=== PATIENT | male | born 1995 | race Two or more races ===

== ENCOUNTER 2019-07-17 21:27 | Emergency (ER) | payer MEDICARE, OTHER ==
[~2019-07-17] VITALS: Ht 177.8 cm; Wt 106.6 kg
--- NOTE | 2019-07-17 21:48 | NUR ---
TATUM 39 FROM [facility] [place] FOR C/I ABD PAIN X 1 DAY. - N/V/D. LAST BM TWO DAYS AGO. PT DENIED SI AND REPORTED NOT WILLING TO GO BACK TO THE [facility] ANY MORE. PT WAS PLACED ON A MONITOR . VSS. WILL CONT TO MONITOR ,
--- NOTE | 2019-07-17 21:59 | NUR ---
BLOOD DRAWN AND SENT TO LAB.
[2019-07-17 22:00] LABS: BASOPHILS # (AUTO) 0.1 /CMM (0.0-0.2); BASOPHILS % (AUTO) 0.8 % (0.0-2.0); EOSINOPHILS % (AUTO) 1.9 % (0.0-6.0); HEMATOCRIT 46 % (39-51); HEMOGLOBIN 15.5 g/dL (13.5-17.5); LYMPHOCYTES # (AUTO) 1.3 /CMM (0.8-4.8); LYMPHOCYTES % (AUTO) 15.1 % (20.0-44.0); MEAN CORPUSCULAR HGB CONC 34 g/dl (31.0-36.0); MEAN CORPUSCULAR VOLUME 88 fL (80-96); MONOCYTES # (AUTO) 0.8 /CMM (0.1-1.30); MONOCYTES % (AUTO) 9.5 % (2.0-12.0); NEUTROPHILS # (AUTO) 6.3 /CMM (1.8-8.9); NEUTROPHILS % (AUTO) 72.7 % (43.0-81.0); PLATELET COUNT (AUTO) 218 /CMM (150-450); RED BLOOD CELL COUNT(AUTO) 5.25 MIL/uL (4.5-6.0); WHITE BLOOD COUNT (AUTO) 8.7 K/uL (4.3-11.0)
[2019-07-17 22:05] LABS: CALCIUM, SERUM 9.1 mg/dL (8.5-10.1); CREATININE 0.9 mg/dL (0.6-1.3); POTASSIUM 3.6 mmol/L (3.5-5.1)
[2019-07-17 22:11] LABS: BILIRUBIN,DIRECT 0.1 mg/dL (0.0-0.2); BILIRUBIN,TOTAL 0.4 mg/dL (0.2-1.0); TOTAL PROTEIN, SERUM 7.4 g/dL (6.4-8.2)
--- NOTE | 2019-07-17 22:20 | NUR ---
URINE COLLECTED AND SENT TO LAB.
--- NOTE | 2019-07-17 22:21 | NUR ---
PATIENT C/O PAIN UPON URINATION.
[2019-07-17 22:26] LABS: APPEARANCE,URINE Slightly Cloudy (CLEAR); BILIRUBIN,URINE Negative (NEGATIVE); BLOOD, URINE Negative Ery/uL (NEGATIVE); COLOR,URINE Yellow (YELLOW); KETONES,URINE Negative (NEGATIVE); LEUKOCYTE ESTERASE ,URINE Negative (NEGATIVE); NITRITE, URINE Negative (NEGATIVE); PROTEIN,URINE Negative (NEGATIVE); UGLUCOSE Negative (NEGATIVE); UROBILINOGEN,URINE 0.2 EU/dL (0.2)
--- NOTE | 2019-07-18 01:11 | NUR ---
IV removed. Catheter intact and site benign. Pressure and 4x4 applied to site. No bleeding noted.
--- NOTE | 2019-07-18 01:12 | NUR ---
PATIENT AGREES TO SPEAK WITH HOT BALLER IN THE MORNING.
--- NOTE | 2019-07-18 01:12 | NUR ---
Patient discharged to home in stable condition. Written and verbal after care instructions given. Patient verbalizes understanding of instruction.
[2019-07-18 01:13] VITALS: BP 129/77
== END 2019-07-18 01:14 | disposition home or self-care (01) ==
LOC: ER 21:30
DX: R30.0 Dysuria (principal); I10 Essential (primary) hypertension; J45.909 Unspecified asthma, uncomplicated
CPT/HCPCS: 36415; 80048-TC; 80076-TC; 81000-TC; 83690-TC; 85025-TC

== ENCOUNTER 2019-07-18 02:18 | Emergency (ER) | payer MEDICARE, OTHER ==
[~2019-07-18] VITALS: Ht 170.2 cm; Wt 106.6 kg
--- NOTE | 2019-07-18 04:06 | NUR ---
PATIENT CAME TO ER BED 11 C/O HEARING VOICES. PATIENT STATES THAT HE HEARS HIS MOTHER'S VOICE TELLING HIM TO HURT SOMEONE. PATIENT DENIES SUICIDAL IDEATION. PATIENT STATES THAT HE DOESN'T WANT TO GO TO [facility] BECAUSE THE DOCTOR AT [facility] IS TOO NEW. AAOX4. NO SOB. BREATHING EVENLY AND UNLABORED ON ROOM AIR. CONNECTED TO MONITOR.
--- NOTE | 2019-07-18 04:07 | NUR ---
URINE COLLECTED AND SENT TO LAB FOR TESTING.
[2019-07-18 05:04] LABS: ALCOHOL, BLOOD < 3 mg/dL (0-0)
[2019-07-18 05:06] LABS: ACETAMINOPHEN 0 ug/ml (10-30); SALICYLATE < 0.2 mg/dL (2.8-20.0)
--- NOTE | 2019-07-18 05:27 | NUR ---
CALLED [facility] FOR PSYCH EVAL.
--- NOTE | 2019-07-18 06:30 | NUR ---
SEEN BY ART MANAGER CONSUMER
--- NOTE | 2019-07-18 07:20 | NUR ---
REPORT GIVEN TO DONA CEE FOR [facility]YS[facility].
--- NOTE | 2019-07-18 08:33 | NUR ---
SEEN BY IRENE PALENCIA, PATIENT WOULD LIKE TO TRY [facility]
--- NOTE | 2019-07-18 08:46 | NUR ---
FILLER PICKER met with the pt bedside. Pt was seen by computer numeric control setter Art who then referred pt to IRENE. Pt is alert and oriented x 4. Pt identifies as transgender. Pt reports he was at [facility] and wants to go back there. FILLER PICKER initiated [facility] voluntary hospitalization by calling Frank at [facility], who stated, they will have a bed for the pt and to fax clinicals. Clinicals faxed to [facility] intake.
--- NOTE | 2019-07-18 10:15 | NUR ---
FITTER PLACER contacted [facility] intake to f/u regarding accepting pt to [facility]. FITTER PLACER spoke with Irene, who informed SW that referral packet has been forwarded to [facility] and is awaiting a response. Irene to f/u with SW in 25 minutes.
[2019-07-18 10:30] LABS: HEMOGLOBIN 16.1 g/dL (13.5-17.5); MEAN CORPUSCULAR HGB CONC 33 g/dl (31.0-36.0)
[2019-07-18 10:35] LABS: BASOPHILS # (AUTO) 0.1 /CMM (0.0-0.2); BASOPHILS % (AUTO) 0.7 % (0.0-2.0); EOSINOPHILS % (AUTO) 0.8 % (0.0-6.0); HEMATOCRIT 49 % (39-51); LYMPHOCYTES # (AUTO) 1.5 /CMM (0.8-4.8); LYMPHOCYTES % (AUTO) 18.1 % (20.0-44.0); MEAN CORPUSCULAR VOLUME 88 fL (80-96); MONOCYTES # (AUTO) 0.8 /CMM (0.1-1.30); NEUTROPHILS % (AUTO) 71.4 % (43.0-81.0); PLATELET COUNT (AUTO) 220 /CMM (150-450); RED BLOOD CELL COUNT(AUTO) 5.52 MIL/uL (4.5-6.0); WHITE BLOOD COUNT (AUTO) 8.4 K/uL (4.3-11.0)
[2019-07-18 10:37] LABS: CALCIUM, SERUM 9.4 mg/dL (8.5-10.1); CARBON DIOXIDE 28 mmol/L (21-32); CHLORIDE 104 mmol/L (98-107); CREATININE 0.7 mg/dL (0.6-1.3); GLUCOSE 96 mg/dL (74-106); POTASSIUM 4.1 mmol/L (3.5-5.1); SODIUM SERUM 141 mmol/L (136-145); UREA NITROGEN, BLOOD 10 mg/dL (7-18)
[2019-07-18 10:51] LABS: ALANINE AMINOTRANSFERASE 42 U/L (12-78); ALBUMIN 4.2 g/dL (3.4-5.0); ALCOHOL, BLOOD < 3 mg/dL (0-0); ALKALINE PHOSPHATASE 78 U/L (46-116); ASPARTATE AMINOTRANSFERASE 33 U/L (15-37); BILIRUBIN,DIRECT 0.2 mg/dL (0.0-0.2); BILIRUBIN,TOTAL 0.7 mg/dL (0.2-1.0); TOTAL PROTEIN, SERUM 7.8 g/dL (6.4-8.2)
--- NOTE | 2019-07-18 11:31 | NUR ---
FAXED CLINICALS TO [facility] INTAKE DEPT C/O [facility] ([phone])
--- NOTE | 2019-07-18 11:46 | NUR ---
IRENE received a call back from [facility] intake. Pt has been accepted to [facility]. Accepting Dr. Botello/Dr. Matute. Report must be called to COLEMAN Maurice at [facility] Addendum: 07/18/19 at 3478 by SLIME BONILLA STEPHEN Gale in ED regarding pt being accepted to [facility].
--- NOTE | 2019-07-18 11:55 | NUR ---
CALLED [facility] FOR TRANSPORT TO [facility]. ETA 1230.
--- NOTE | 2019-07-18 12:07 | NUR ---
REPORT GIVEN TO DEAN CEE UNIT 2 OF [facility].
[2019-07-18 12:59] VITALS: BP 137/80
--- NOTE | 2019-07-18 13:01 | NUR ---
Patient picked up by [facility] Unit [facility] in stable condition. Clinicals given to EMT to be given to [facility].
== END 2019-07-18 13:03 ==
LOC: ER 02:19
DX: R45.850 Homicidal ideations (principal); I10 Essential (primary) hypertension; J45.909 Unspecified asthma, uncomplicated
CPT/HCPCS: 36415; 80048; 80076; 80305; 80307 ×2; 80329; 85025; 99285; G0480

== ENCOUNTER 2019-07-18 17:59 | Emergency (ER) | payer MEDICARE, OTHER ==
[~2019-07-18] VITALS: Ht 170.2 cm; Wt 106.6 kg
--- NOTE | 2019-07-18 18:05 | NUR ---
[id number] FROM [facility]SIDE URGENT CARE C/O SI. "I WANT TO HANG MYSELF." SEEN EARLIER, [facility]. PT STS "THEY DONT HAVE A BED FOR ME." TO ER BED 13, HOOKED TO MONITOR, SECURITY AT BEDSIDE FOR WANDING. CHANGEDT [facility]I HOSP GOWN, WARM BLANKET PROVIDED, AWAITING MD LAKHANI.
--- NOTE | 2019-07-18 18:51 | NUR ---
SUICIDE PRECAUTIONS APPLIED. 1:1 SITTER AT BEDSIDE
[2019-07-18 19:04] LABS: BASOPHILS # (AUTO) 0.1 /CMM (0.0-0.2); BASOPHILS % (AUTO) 0.6 % (0.0-2.0); EOSINOPHILS % (AUTO) 0.4 % (0.0-6.0); HEMATOCRIT 51 % (39-51); HEMOGLOBIN 16.3 g/dL (13.5-17.5); LYMPHOCYTES # (AUTO) 1.2 /CMM (0.8-4.8); LYMPHOCYTES % (AUTO) 10.5 % (20.0-44.0); MEAN CORPUSCULAR HGB CONC 32 g/dl (31.0-36.0); MEAN CORPUSCULAR VOLUME 89 fL (80-96); MONOCYTES % (AUTO) 8.3 % (2.0-12.0); NEUTROPHILS # (AUTO) 9.3 /CMM (1.8-8.9); NEUTROPHILS % (AUTO) 80.2 % (43.0-81.0); PLATELET COUNT (AUTO) 248 /CMM (150-450); RED BLOOD CELL COUNT(AUTO) 5.71 MIL/uL (4.5-6.0); WHITE BLOOD COUNT (AUTO) 11.5 K/uL (4.3-11.0)
[2019-07-18 19:10] LABS: CALCIUM, SERUM 9.5 mg/dL (8.5-10.1); CARBON DIOXIDE 26 mmol/L (21-32); CHLORIDE 105 mmol/L (98-107); CREATININE 0.9 mg/dL (0.6-1.3); GLUCOSE 94 mg/dL (74-106); POTASSIUM 3.8 mmol/L (3.5-5.1); SODIUM SERUM 143 mmol/L (136-145); UREA NITROGEN, BLOOD 12 mg/dL (7-18)
[2019-07-18 19:16] LABS: ALANINE AMINOTRANSFERASE 45 U/L (12-78); ALBUMIN 4.4 g/dL (3.4-5.0); ALCOHOL, BLOOD < 3 mg/dL (0-0); ALKALINE PHOSPHATASE 81 U/L (46-116); ASPARTATE AMINOTRANSFERASE 36 U/L (15-37); BILIRUBIN,DIRECT 0.1 mg/dL (0.0-0.2); BILIRUBIN,TOTAL 0.5 mg/dL (0.2-1.0); TOTAL PROTEIN, SERUM 8.1 g/dL (6.4-8.2)
--- NOTE | 2019-07-18 19:16 | NUR ---
Pt resting comfortably. VSS.
[2019-07-18 20:43] LABS: APPEARANCE,URINE Turbid (CLEAR); BILIRUBIN,URINE Negative (NEGATIVE); BLOOD, URINE Negative Ery/uL (NEGATIVE); COLOR,URINE Yellow (YELLOW); KETONES,URINE Negative (NEGATIVE); LEUKOCYTE ESTERASE ,URINE Negative (NEGATIVE); NITRITE, URINE Negative (NEGATIVE); PROTEIN,URINE Negative (NEGATIVE); UGLUCOSE Negative (NEGATIVE); UROBILINOGEN,URINE 0.2 EU/dL (0.2)
--- NOTE | 2019-07-18 20:57 | NUR ---
PT PROVIDED URINE SAMPLE. GIVEN FOOD. VSS.
--- NOTE | 2019-07-19 00:02 | NUR ---
Patient is resting comfortably in bed with eyes closed. Easily aroused. VSS
--- NOTE | 2019-07-19 04:48 | NUR ---
Patient is resting comfortably in bed with eyes closed. Easily aroused. VSS.
--- NOTE | 2019-07-19 07:07 | NUR ---
PT ASLEEP. VSS.
--- NOTE | 2019-07-19 07:44 | NUR ---
PATIENT IN BED ASLEEP, EASILY AROUSABLE BY VOICE. HOOKED TO MONITOR, KEPT SAFE, WARM AND COMFORTABLE.
--- NOTE | 2019-07-19 08:15 | NUR ---
TREE AND SHRUB TECHNICIAN contacted Frank at [facility] to inquire pt stating they were no beds at [facility] when he was transferred and accepted there yesterday from [facility]. Frank informed SW to fax clinicals and he will follow up with SW. Clinicals faxed to [facility] intake.
--- NOTE | 2019-07-19 08:15 | NUR ---
PROVIDED W BREAKFAST TRAY, TOLERATED FOOD WELL.
--- NOTE | 2019-07-19 09:30 | NUR ---
Accepted at [facility] under Dr Matute/Dominic. Call [place] at [phone] for report.
--- NOTE | 2019-07-19 09:32 | NUR ---
Received call from [facility] intake. pt is accepted at [facility] under Dr. Botello and Dr. Matute. Report needs to be called to . BANKRUPTCY MANAGER updated RN Juvenal in ED with aforementioned information.
--- NOTE | 2019-07-19 12:29 | NUR ---
PATIENT VERBALIZED THAT HE [facility] NOT [facility] MADE IRENE PALENCIA AWARE.
--- NOTE | 2019-07-19 12:31 | NUR ---
CALLED TRANSPORT [facility] [phone] ETA 1186. CALLED [facility] ETA 1300 TRIP NUMBER [id number] PER DIRK.
--- NOTE | 2019-07-19 15:02 | NUR ---
hold at 1430
--- NOTE | 2019-07-19 15:02 | NUR ---
Pt was evaluated by crisis team and placed on a 5150 hold. BLOOD BANK ORDER CONTROL CLERK gave clinical referral packet to Osbaldo, distance learning program coordinator to fax packet to [facility] and Zain Damon. BLOOD BANK ORDER CONTROL CLERK updated CRN Gener in ED.
--- NOTE | 2019-07-19 15:43 | NUR ---
Per Darlene in intake at [facility], clinicals were faxed to [facility] and [facility].
--- NOTE | 2019-07-19 21:35 | NUR ---
PT RESTING COMFORTABLY. VSS.
--- NOTE | 2019-07-20 00:20 | NUR ---
PT RESTING COMFORTABLY. VSS.
--- NOTE | 2019-07-20 01:09 | NUR ---
PT SAYRA RANDALL.
--- NOTE | 2019-07-20 02:17 | NUR ---
PT AMBULATED TO RESTROOM.
--- NOTE | 2019-07-20 03:32 | NUR ---
Patient is resting comfortably in bed with eyes closed. Easily aroused. VSS
--- NOTE | 2019-07-20 08:06 | NUR ---
SW contacted [facility] for a f/u regarding referral that was sent to them yesterday. Per Art at [facility], pt has been referred to several hospitals and is awaiting a bed at this time. Art requested for CONSUMER ATTORNEY to follow up around 1PM.
--- NOTE | 2019-07-20 09:02 | NUR ---
breakfast tray provided. patient tolerating food well.
--- NOTE | 2019-07-20 09:36 | NUR ---
IRENE Sharif and Admin Leydi at bedside
--- NOTE | 2019-07-20 10:57 | NUR ---
Patient stated he's not suicidal. Patient given written and verbal discharge instructions. Patient verbalizes understanding of instructions. Patient is ambulatory with steady gait. Ref[place] [facility] [place] [facility]. Patient given list of available shelters in surrounding area. discharged with proper clothing. Name band removed, All belongings given to patient. Assisted to waiting room to wait for a cab.
[2019-07-20 11:00] VITALS: BP 122/69
== END 2019-07-20 11:00 | disposition home or self-care (01) ==
LOC: ER 17:59
DX: R45.851 Suicidal ideations (principal); F20.9 Schizophrenia, unspecified; I10 Essential (primary) hypertension; J45.909 Unspecified asthma, uncomplicated; F32.9 Major depressive disorder, single episode, unspecified; Z04.6 Encounter for general psychiatric examination, requested by authority
CPT/HCPCS: 36415; 80048; 80076; 80305; 80307; 80329; 81001; 85025; 99285; G0480; 81000-TC

== ENCOUNTER 2021-08-22 21:31 | Emergency (ER) | payer MEDICARE, OTHER ==
[~2021-08-22] VITALS: Ht 170.2 cm; Wt 81.6 kg
[2021-08-23 00:02] LABS: BASOPHILS # (AUTO) 0.1 K/uL (0.0-0.2); BASOPHILS % (AUTO) 1.3 % (0.0-2.0); EOSINOPHILS % (AUTO) 1.3 % (0.0-6.0); HEMATOCRIT 45 % (39-51); HEMOGLOBIN 15.1 g/dL (13.5-17.5); LYMPHOCYTES # (AUTO) 2.5 K/uL (0.8-4.8); LYMPHOCYTES % (AUTO) 30.5 % (20.0-44.0); MEAN CORPUSCULAR HGB CONC 34 g/dl (31.0-36.0); MEAN CORPUSCULAR VOLUME 88 fL (80-96); MONOCYTES # (AUTO) 0.7 K/uL (0.1-1.30); MONOCYTES % (AUTO) 8.3 % (2.0-12.0); NEUTROPHILS # (AUTO) 4.7 K/uL (1.8-8.9); NEUTROPHILS % (AUTO) 58.6 % (43.0-81.0); PLATELET COUNT (AUTO) 204 K/uL (150-450); RED BLOOD CELL COUNT(AUTO) 5.13 MIL/uL (4.5-6.0)
[2021-08-23 00:15] LABS: ALANINE AMINOTRANSFERASE 42 U/L (12-78); ALBUMIN 3.7 g/dL (3.4-5.0); ALCOHOL, BLOOD < 3 mg/dL (0-0); ALKALINE PHOSPHATASE 82 U/L (46-116); ASPARTATE AMINOTRANSFERASE 21 U/L (15-37); BILIRUBIN,DIRECT 0.1 mg/dL (0.0-0.2); BILIRUBIN,TOTAL 0.2 mg/dL (0.2-1.0); CALCIUM, SERUM 8.7 mg/dL (8.5-10.1); CARBON DIOXIDE 29 mmol/L (21-32); CHLORIDE 103 mmol/L (98-107); CREATININE 0.8 mg/dL (0.6-1.3); GLUCOSE 96 mg/dL (74-106); POTASSIUM 3.6 mmol/L (3.5-5.1); SODIUM SERUM 140 mmol/L (136-145); TOTAL PROTEIN, SERUM 6.9 g/dL (6.4-8.2); UREA NITROGEN, BLOOD 14 mg/dL (7-18)
[2021-08-23 00:17] LABS: ACETAMINOPHEN 0 ug/ml (10-30)
[2021-08-23 01:25] LABS: BILIRUBIN,URINE NEGATIVE (NEGATIVE); COLOR,URINE YELLOW (YELLOW); LEUKOCYTE ESTERASE ,URINE NEGATIVE (NEGATIVE); NITRITE, URINE NEGATIVE (NEGATIVE); PROTEIN,URINE NEGATIVE (NEGATIVE); UGLUCOSE NEGATIVE (NEGATIVE); UROBILINOGEN,URINE 0.2 EU/dL (0.2)
[2021-08-23] MEDS ORDERED: LORAZEPAM 1 MG TABLET ONE (04:42)
[2021-08-23] MEDS ORDERED: LORAZEPAM 1 MG TABLET PO ONE (05:00)
[2021-08-23 06:32] LABS: BACTERIA,URINE None seen /HPF (None Seen); RBC,URINE NONE SEEN /HPF (0-2); SQUAMOUS EPITHELIAL CELL,UR None Seen /HPF (None Seen); WBC,URINE 81-100 /HPF (0-3)
[2021-08-23] MEDS ORDERED: PANTOPRAZOLE 40 MG TABLET.DR PO ONE ×2 (21:30→22:08)
[2021-08-23] MEDS ORDERED: risperiDONE 0.25 MG TABLET PO ONE (21:30)
[2021-08-23] MEDS ORDERED: GABAPENTIN 100 MG CAPSULE PO ONE (21:30)
[2021-08-23] MEDS: ESTRADIOL 1 MG TABLET PO SCH (21:30)
[2021-08-23] MEDS ORDERED: DIVALPROEX SODIUM 500 MG TABLET.DR PO ONE ×2 (21:30→22:08)
[2021-08-23] MEDS ORDERED: chlorproMAZINE HCL 25 MG TABLET PO ONE (21:30)
[2021-08-23] MEDS: MONTELUKAST SODIUM (10MG) 10 MG TABLET PO SCH ×2 (22:00→22:14)
[2021-08-23] MEDS ORDERED: GABAPENTIN 100 MG CAPSULE ONE (22:08)
[2021-08-23] MEDS ORDERED: chlorproMAZINE HCL 25 MG TABLET ONE (22:08)
[2021-08-23] MEDS ORDERED: risperiDONE 1 MG TABLET ONE (22:08)
[2021-08-23] MEDS ORDERED: LISINOPRIL (20MG) 20 MG TABLET ONE (22:26)
[2021-08-24] MEDS ORDERED: PAROXETINE HCL 10 MG TABLET PO SCH (09:00)
[2021-08-24] MEDS ORDERED: LISINOPRIL (10MG) 10 MG TABLET PO SCH (09:00)
[2021-08-24] MEDS: ESTRADIOL 1 MG TABLET PO SCH (09:11)
[2021-08-24 13:29] VITALS: BP 135/64
== END 2021-08-24 13:29 | disposition home or self-care (01) ==
LOC: ER 21:38
DX: F39 Unspecified mood [affective] disorder (principal); R45.851 Suicidal ideations; M79.7 Fibromyalgia; Z59.01 Sheltered homelessness; F25.9 Schizoaffective disorder, unspecified; F41.9 Anxiety disorder, unspecified; R82.81 Pyuria; Z20.822 Contact with and (suspected) exposure to COVID-19
CPT/HCPCS: 36415; 80048; 80076; 80143; 80307; 80320; 81001; 85025; 87086; 87426; 99285; Q0161; C9803; G0480

== ENCOUNTER 2021-11-28 18:08 | Emergency (ER) | payer MEDICARE, OTHER ==
[~2021-11-28] VITALS: Ht 170.2 cm; Wt 108.9 kg
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
--- NOTE | 2021-11-28 18:14 | NUR ---
dr marie at bedside for eval.
[2021-11-28 18:59] LABS: BILIRUBIN,URINE NEGATIVE (NEGATIVE); COLOR,URINE YELLOW (YELLOW); LEUKOCYTE ESTERASE ,URINE NEGATIVE (NEGATIVE); NITRITE, URINE NEGATIVE (NEGATIVE); PH,URINE 6.5 (5.0-8.0); PROTEIN,URINE NEGATIVE (NEGATIVE); UGLUCOSE NEGATIVE (NEGATIVE)
[2021-11-28 19:05] LABS: CALCIUM, SERUM 8.9 mg/dL (8.5-10.1); CARBON DIOXIDE 27 mmol/L (21-32); CHLORIDE 106 mmol/L (98-107); CREATININE 0.8 mg/dL (0.6-1.3); GLUCOSE 102 mg/dL (74-106); POTASSIUM 3.7 mmol/L (3.5-5.1); SODIUM SERUM 141 mmol/L (136-145); UREA NITROGEN, BLOOD 12 mg/dL (7-18)
[2021-11-28] MEDS ORDERED: LORAZEPAM INJ 2 MG/ML VIAL ONE (19:09)
[2021-11-28] MEDS ORDERED: diphenhydrAMINE HCL 50 MG/ML VIAL ONE ×2 (19:09→20:49)
[2021-11-28] MEDS ORDERED: HALOPERIDOL LACTATE INJ 5 MG/ML VIAL ONE ×2 (19:09→20:48)
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
[2021-11-28 19:17] LABS: ALANINE AMINOTRANSFERASE 20 U/L (12-78); ALKALINE PHOSPHATASE 61 U/L (46-116); ASPARTATE AMINOTRANSFERASE 18 U/L (15-37); BILIRUBIN,DIRECT 0.1 mg/dL (0.0-0.2); BILIRUBIN,TOTAL 0.3 mg/dL (0.2-1.0); TOTAL PROTEIN, SERUM 7.7 g/dL (6.4-8.2)
[2021-11-28 19:18] LABS: ACETAMINOPHEN 0 ug/ml (10-30); ALCOHOL, BLOOD < 3 mg/dL (0-0)
[2021-11-28] MEDS ORDERED: diphenhydrAMINE HCL 50 MG/ML VIAL IM ONE ×2 (19:30→21:00)
[2021-11-28] MEDS ORDERED: HALOPERIDOL LACTATE INJ 5 MG/ML VIAL IM ONE ×2 (19:30→21:00)
[2021-11-28] MEDS ORDERED: LORAZEPAM INJ 2 MG/ML VIAL IM ONE (19:30)
[2021-11-28 19:41] LABS: BACTERIA,URINE None seen /HPF (None Seen); MUCUS,URINE Many /LPF (None Seen); RBC,URINE 0-2 /HPF (0-2); SQUAMOUS EPITHELIAL CELL,UR 0-2 /HPF (None Seen); WBC,URINE 0-2 /HPF (0-3)
[2021-11-28 19:51] LABS: BASOPHILS # (AUTO) 0.1 K/uL (0.0-0.2); BASOPHILS % (AUTO) 0.8 % (0.0-2.0); EOSINOPHILS % (AUTO) 0.7 % (0.0-6.0); HEMATOCRIT 43 % (39-51); HEMOGLOBIN 14.8 g/dL (13.5-17.5); LYMPHOCYTES # (AUTO) 1.6 K/uL (0.8-4.8); LYMPHOCYTES % (AUTO) 22.7 % (20.0-44.0); MEAN CORPUSCULAR HGB CONC 34 g/dl (31.0-36.0); MEAN CORPUSCULAR VOLUME 89 fL (80-96); MONOCYTES # (AUTO) 0.7 K/uL (0.1-1.30); MONOCYTES % (AUTO) 9.7 % (2.0-12.0); NEUTROPHILS # (AUTO) 4.6 K/uL (1.8-8.9); NEUTROPHILS % (AUTO) 66.1 % (43.0-81.0); PLATELET COUNT (AUTO) 231 K/uL (150-450); RED BLOOD CELL COUNT(AUTO) 4.84 MIL/uL (4.5-6.0)
[2021-11-28] MEDS ORDERED: diphenhydrAMINE HCL ELIX 25 MG/10 ML UDC ONE (20:48)
[2021-11-29] MEDS ORDERED: OLANZAPINE 10 MG VIAL IM ONE ×4 (03:14→18:03)
--- NOTE | 2021-11-29 08:00 | NUR ---
BREAKFAST TRAY PROVIDED, TOLERATED WELL
--- NOTE | 2021-11-29 08:19 | NUR ---
PER [facility], THEY CAN'T TAKE THE PATIENT
--- NOTE | 2021-11-29 08:30 | NUR ---
SPOKE WITH PSYCH CLINICIAN RADHA CRANDALL AND ASKED HIM TO FIND PLACEMENT FOR THE PATIENT. MR CRANDALL WILL BE ON DUTY UNTIL 1700 TODAY. MR CRANDALL TEL [phone]
--- NOTE | 2021-11-29 08:34 | NUR ---
PER RADHA CRANDALL (PSYCH CLINICIAN) THE CASE MUST BE FOLLOWED UP BY PSYCH CLINICIAN KATE.
--- NOTE | 2021-11-29 16:33 | NUR ---
SPOKE WITH KATE (PSYCH CLINICIAN) WHO STATED SHE WILL CONTACT LAB TECHNICIAN PSYCH MD TO SEE THE PATIENT.
[2021-11-29] MEDS ORDERED: diphenhydrAMINE HCL 50 MG/ML VIAL IM ONE (17:00)
[2021-11-29] MEDS ORDERED: diphenhydrAMINE HCL 50 MG/ML VIAL ONE (18:04)
--- NOTE | 2021-11-30 10:09 | NUR ---
Psych Placement: IRENE followed up with psych hospitals for update on possible admission: [facility] TEL: [phone] Intake no bed availability [facility] fax:[phone] tel:[phone] no adult beds at this time [facility] FAX: [phone] TEL:[phone] EXT. [phone] declined as they do not have a private room for pt. 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 [facility] FAX [phone] TEL:[phone] Per intake theya reviewing clinicals. IRENE faxed clinicals to the following hospitals: [facility] TEL: [phone] fax: [phone] [facility] fax:[phone]; [phone] tel:[phone] [facility] TEL: [phone] FAX: [phone] [facility] FAX: [phone] TEL:[phone] ; 3 [facility] FAX: [phone] TEL: [phone]
[2021-11-30] MEDS ORDERED: chlorproMAZINE HCL 25 MG TABLET PO ONE (10:30)
[2021-11-30] MEDS ORDERED: chlorproMAZINE HCL 25 MG TABLET ONE (10:38)
--- NOTE | 2021-11-30 14:00 | NUR ---
SW Consult: SW met with pt for evaluation (living condition). Pt appeared alert and oriented x2. Pt appeared labile and angry. He stated that he was at [facility]. He stated that he has no supportive contact. Pt stated that he is LGBT friendly. He was unable to state where he currently resides and he was unable to state where he would want to go. He reported that he wants to go somewhere quiet in "[place]" but was not able to give a actual location. SW asked pt for his FSP director of casework department number he stated that "she is very angry with me right now and I prefer you do not speak to him". However, pt then allowed this video game script writer to contact his director of casework department to gather information. SW contacted Anne Robles Address: [address] [place] [address], and left a detailed voicemail wanting to gather more information. Pt denied suicidal or homicidal ideation. Pt denied visual/auditory hallucinations. SW assessed for substance abuse and he denied. He stated that he does not drink or smoke.
--- NOTE | 2021-11-30 15:15 | NUR ---
IRENE Note: IRENE spoke with Frank from [facility] ([phone]) and requested for him to reconsider pt he stated that they will not accept pt back due to pt being aggressive towards staff. Addendum: 11/30/21 at 1523 by IRENE BAEZA Intake will review it again Addendum: 11/30/21 at 1610 by IRENE BAEZA Pt denied no bed available at this time
--- NOTE | 2021-11-30 15:23 | NUR ---
IRENE Note: IRENE contacted Anne Robles Address: [address] [place] [address], and left a detailed voicemail wanting to gather more information and to help with placement.
[2021-11-30] MEDS ORDERED: OLANZAPINE 5 MG TABLET PO ONE (17:30)
[2021-11-30] MEDS ORDERED: OLANZAPINE 5 MG TABLET ONE (17:37)
--- NOTE | 2021-11-30 17:56 | NUR ---
CALL BACK FROM [facility] ASKING IF PSYCHIATRIST HAS SEEN THE PATIENT AND WHEN TOLD,NOT YET,SHE ASKED TO BE TRANSFERRED TO GPS TO F/U.
[2021-11-30] MEDS ORDERED: HALOPERIDOL 1 MG TABLET PO ONE (23:00)
[2021-11-30] MEDS ORDERED: BENZTROPINE MESYLATE (1 MG) 1 MG TABLET PO ONE (23:00)
[2021-11-30] MEDS ORDERED: DIVALPROEX SODIUM 500 MG TABLET.DR PO ONE ×2 (23:00→23:21)
--- NOTE | 2021-11-30 23:10 | NUR ---
SEEN AND EVALUATED BY DR SWEENEY, PSYCHIATRIC AT THE BED SIDE
[2021-11-30] MEDS ORDERED: BENZTROPINE MESYLATE (1 MG) 1 MG TABLET ONE (23:21)
[2021-11-30] MEDS ORDERED: HALOPERIDOL 5 MG TABLET ONE (23:22)
--- NOTE | 2021-12-01 10:05 | NUR ---
Pt. was denies by the [facility]: [facility] TEL: [phone] fax: [phone] [facility] fax:[phone]; [phone] tel:[phone] [facility] TEL: [phone] FAX: [phone] [facility] FAX: [phone] TEL:[phone] ; [facility] FAX: [phone] TEL: [phone]
[2021-12-01] MEDS ORDERED: chlorproMAZINE HCL 25 MG TABLET PO ONE ×2 (12:30)
--- NOTE | 2021-12-01 15:02 | NUR ---
Initial Discharge plan: SS consult requested for suicidal ideation. Pt. is a 26-year-old who identified was admitted to [facility] due to suicidal ideation. Pt. is currently on a 5150 hold in the ED for DTS/ DTO. Upon SS consult, pt. is alert and oriented x4. Pt. appears unkempt and provides appropriate eye contact. Per EMR, pt. has history of autism. Pt. presents bizarre behavior and delayed speech. facility planner explored pt.'s current living situation. Pt. stated he has been homeless for a month. facility planner offered pt. homeless resources and pt. accepted. facility planner explored pt.'s substance use history. Pt. states that he uses heroin, methamphetamine and cannabinoids. Pt. mariposa greeable to "I will take anything I can get my hands on". facility planner offered pt. referral to [facility] ([address] [place] [address]), mental health resources and homeless resources to shelters and pt. accepted. facility planner explored pt.'s psychiatric diagnosis. Pt. stated he is diagnosed with schizoaffective disorder, PTSD, and borderline personality disorder. Pt. denied current suicidal/homicidal ideation. Pt. denied current visual and auditory hallucinations. IRENE spoke to the pt.'s FSP Anne GIL who states that the pt. is welcome to return back to [facility][[address] [place] [address]] for trasnitional/ sober living where he was living at before going to [facility]. IRENE discussed with pt. and they are agreeable to return to facility. IRENE provided Taxi voucher and Admitting department will order taxi then patient's hold expires at 1835. IRENE notified Blade khan who expressed understanding. IRENE will eb available as needed. DC PLAN: Per pt. he is willing to return to [facility][[address] [facility] [place] [id number]] transitional housing upon discharge. Addendum: 12/01/21 at 1522 by HAYDEN SW provided pt. with the following homelessness, mental health and drug use resources and pt. accepted them: Year-round shelters: [facility] [place] [address] [place] [address] ; [facility] [place] [address] [place] [address]; [place] [facility] Gzinjez[address] [facility] [address] Hygiene: [facility]: [address] [facility] ; [facility] [address] [facility] ; [facility] 7679 [facility] . Food Resources: [place] [facility] at [facility]- 5700 [facility]; Meet Each Need with Dignity ([facility]) [address] [facility]; [facility] Food Pantry 4368 [facility]; [facility] 3539 [facility]. Mental Health resources provided: [facility] [address] [place] [address] ; [facility] [address] [facility] [address], [place] [address] ; Brice Mandy [facility] [address] [place] [address] ; [facility] [place] [address] Healthcare Clinics: [facility] [address] [facility], [address] [place]. [place] ; [facility] [address] [facility] [address] [place] [address]; [facility] [address] [facility] [place] [address] [phone] Counseling--[facility] [address] [facility], [place] [address] (Specializes in in-depth psychotherapy for emotional distress: anxiety, depression, interpersonal conflicts, life transitions, childhood abuse) [facility] [address] [place] [address] (Assist with solving problem marital difficulties, separation & divorce, aging parents, & grief, chronic & terminal illness) [facility] [address] [place] [address] (Deal with loss & grief, anxiety, marital difficulties) Homebound/Mental Health Services [address], [address] [place] [address] (Provide in-home mental services to people who are incapable of leaving their homes) Organization for Needs of the Elderly Senior Service/Resource Center [address] [facility] [place] [address] [facility] [address] [facility] [place] [address] PSYCHIATRIC OUTPATIENT SERVICES [facility] Partial Hospitalization and Intensive Outpatient Program (Managed Care and [place] Only)[address] [facility] [phone] [facility] Partial Hospitalization and Outpatient Dskhswy79070 [facility] [address] [place], [place] [phone] [facility] Center Atn[address] [facility] [address] [place], [place] [phone] [facility] Partial Hospitalization and Outpatient [id number] [facility] Evan [phone] Substance Abuse resources provided included: [facility] Substance Abuse Self-Helpline ([facility]) ; CRI -HELP [address] [facility]. [place] [address] ; [facility] [address] [facility] [address] ; [facility] Rehabilitation [facility] [address] [facility] [place] [address] ; [facility] [address] [facility] [phone] ; [facility] 6088 Don [facility] [address] ; [facility] 909 [facility] [phone] ; [facility] Substance Abuse Helpline([facility] ; [facility] ; [facility]; [facility] [place]; [facility]; [facility] [place]; [place]; [facility] [place]; Alcoholics Anonymous -SFV; On-Ogra-Lxiazqa ; Marijuana Anonymous -SFV; Narcotics Anonymous www.na.org;
--- NOTE | 2021-12-01 15:32 | NUR ---
FOLLOWED UP THORAZINE MEDICATION W/ PHARMACY; NOT ENOUGH SUPPLY IN [facility]
--- NOTE | 2021-12-01 20:03 | NUR ---
DAVIDY CRISIS TEAM AT PT'S BEDSIDE
--- NOTE | 2021-12-01 20:42 | NUR ---
PATIENT WAS SEEN AND EVALUATED BY POLINA FROM CRISIS TEAM. CLEAR FOR D/C . PATIENT IS ALSO CLEEAR FOR D/C PER DR SHEARER, Patient discharged to home in stable condition. Written and verbal after care instructions given. Patient verbalizes understanding of instruction. PT WAS D/C'D TO [facility] TAXI PROVIDED BY [facility]
--- NOTE | 2021-12-01 21:10 | NUR ---
Katlin plasencia in [facility] - 12/01/21 at 2200 by OMAR Patient discharged to home in stable condition. Written and verbal after care instructions given. Patient verbalizes understanding of instruction.
[2021-12-01 22:00] VITALS: BP 120/82
== END 2021-12-01 21:00 | disposition home or self-care (01) ==
LOC: ER 18:18
DX: R45.851 Suicidal ideations (principal); F25.9 Schizoaffective disorder, unspecified; F31.9 Bipolar disorder, unspecified; M79.7 Fibromyalgia; I10 Essential (primary) hypertension; J45.909 Unspecified asthma, uncomplicated; Z91.51 Personal history of suicidal behavior; F10.10 Alcohol abuse, uncomplicated; Y90.0 Blood alcohol level of less than 20 mg/100 ml; Z78.1 Physical restraint status; F64.9 Gender identity disorder, unspecified; Z20.822 Contact with and (suspected) exposure to COVID-19
CPT/HCPCS: 99291; 96372 ×3; 85025; 80048; 80076; 81001; 36415; 87426; 80143; 80320; 80307; J2060; J1200 ×3; J1630 ×2; A6403; J3490 ×2; Q0161 ×2; C9803; G0480; Q0163